=== PATIENT | male | born 1980 | race Caucasian/White ===

== ENCOUNTER 2018-05-07 13:32 | Emergency (ER) | payer OTHER ==
[~2018-05-07] VITALS: Ht 182.9 cm; Wt 89.6 kg
[2018-05-07 13:35] VITALS: BP 129/85
[2018-05-07 13:50] VITALS: BP 129/85
--- NOTE | 2018-05-07 14:05 | NUR ---
Patient discharged with v/s stable. Written and verbal after care instructions given and explained. Patient verbalized understanding. Ambulatory with steady gait. All questions addressed prior to discharge. Advised to follow up with PMD.
== END 2018-05-07 14:05 | disposition home or self-care (01) ==
LOC: MED 13:32
DX: G56.01 Carpal tunnel syndrome, right upper limb (principal)
CPT/HCPCS: 99283

== ENCOUNTER 2018-12-13 16:09 | Emergency (ER) | payer OTHER ==
[~2018-12-13] VITALS: Ht 177.8 cm; Wt 81.7 kg
[2018-12-13 16:22] VITALS: BP 140/93
--- NOTE | 2018-12-13 16:41 | NUR ---
pt ambulated to bed 02.
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
--- NOTE | 2018-12-13 16:45 | NUR ---
xray by bedside
--- NOTE | 2018-12-13 18:02 | NUR ---
patient with no new complaints. vss. nad.
[2018-12-13 19:05] VITALS: BP 137/88
--- NOTE | 2018-12-13 19:05 | NUR ---
Patient discharged with v/s stable. Written and verbal after care instructions given and explained. Patient alert, oriented and verbalized understanding of instructions. Ambulatory with steady gait. All questions addressed prior to discharge. ID band removed. Patient advised to follow up with PMD. Rx of [place] #5-325mg and Motrin 800mg given. Patient educated on indication of medication including possible reaction and side effects. Opportunity to ask questions provided and answered.
== END 2018-12-13 19:05 | disposition home or self-care (01) ==
LOC: MED 16:09
DX: S69.91XA Unspecified injury of right wrist, hand and finger(s), initial encounter (principal); Y04.0XXA Assault by unarmed brawl or fight, initial encounter; Y93.89 Activity, other specified; Y92.89 Other specified places as the place of occurrence of the external cause; Y99.8 Other external cause status
CPT/HCPCS: 73130; 99283

== ENCOUNTER 2019-01-05 18:13 | Emergency (ER) | payer OTHER ==
[~2019-01-05] VITALS: Ht 188 cm; Wt 81.7 kg
[2019-01-05 18:16] VITALS: BP 160/83
--- NOTE | 2019-01-05 18:29 | NUR ---
PT AMBULATES TO BED 8
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
--- NOTE | 2019-01-05 19:05 | NUR ---
RECIEVED REPORT FROM NAYAN BA. PT SITTING UP IN BED, PT STATED HE HAS SOME PAIN, LEVEL 8/10 AT THIS TIME. VITALS STABLE. ER MADE AWARE.
[2019-01-05 19:30] VITALS: BP 133/74
--- NOTE | 2019-01-05 19:30 | NUR ---
Patient discharged with v/s stable. Written and verbal after care instructions given and explained. Patient alert, oriented and verbalized understanding of instructions. Ambulatory with steady gait. All questions addressed prior to discharge. ID band removed. Patient advised to follow up with PMD. Rx of [place] and Ibuprofen given. Patient educated on indication of medication including possible reaction and side effects. Opportunity to ask questions provided and answered.
== END 2019-01-05 19:30 | disposition home or self-care (01) ==
LOC: MED 18:13
DX: S63.601A Unspecified sprain of right thumb, initial encounter (principal); X58.XXXA Exposure to other specified factors, initial encounter; Y93.89 Activity, other specified; Y92.89 Other specified places as the place of occurrence of the external cause; Y99.8 Other external cause status
CPT/HCPCS: 73130; 99283; Q0092